=== PATIENT | female | born 1970 | race Caucasian/White ===

== ENCOUNTER 2017-04-29 21:48 | Emergency (ER) | payer BC ==
[2017-04-29 22:05] VITALS: BP 139/89
[2017-04-29] MEDS ORDERED: Sodium Chloride 0.9% 10 ML Syringe FLUSH PRN (22:21)
--- NOTE | 2017-04-29 23:35 | EDM.PDOC ---
ED HPI GENERAL MEDICAL PROBLEM - General Chief Complaint: Behavioral/Psych Stated Complaint: ARM AND FACE NUMBNESS Time Seen by Provider: 04/29/17 22:06 Source of Information: Reports: Patient History Limitations: Reports: No Limitations - History of Present Illness INITIAL COMMENTS - FREE TEXT/NARRATIVE: The patient presents with left facial numbness and left arm numbness. She noticed this yesterday. This is made worse by anxiety that she has. She will see a counselor next week. She has had a tough life. She was in a bad marriage , a son , and another son is psychotic and he is in a skilled nursing. She is now in a good relationship with a great yas and she is worried he may dump her because she is not supposed to be happy. The numbness is made worse with anxiety. She denies a headache or vision problems. She has no weakness with this. She does have a history of asthma and has tightness in her chest. She has no shortness of breath, nausea, vomiting or abdominal pain. Onset: Gradual Duration: Day(s): (2) Location: Reports: Face, Upper Extremity, Left (arm) Quality: Reports: Other (numbness) Severity: Mild Improves with: Reports: None Worsens with: Reports: None Context: Reports: Activity Associated Symptoms: Reports: No Other Symptoms Treatments PSYCHIATRY TEACHER: Reports: Other (see below) Other Treatments PSYCHIATRY TEACHER: rescue inhaler albuterol - Related Data Allergies Allergy/AdvReac Type Severity Reaction Status Date / Time Sulfa (Sulfonamide Allergy Rash Verified 04/29/17 22:04 Antibiotics) Home Meds: Home Meds Albuterol [IJD: Ventolin HFA] 1 puff INH BID PRN 04/29/17 [History] Control Pills 1 tab PO DAILY 04/29/17 [History] Levothyroxine 125 mcg PO ACBREAKFAST 04/29/17 [History] Past Medical History - Past Health History Medical/Surgical History: Denies Medical/Surgical History Respiratory History: Reports: Asthma TRAINING AND DEVELOPMENT COORDINATOR History: Reports: Dysfunctional Uterine Bleeding, Musculoskeletal History: Reports: Other (See Below) Other Musculoskeletal History: "pinched nerve" to right shoulder Psychiatric History: Reports: Anxiety, Depression Endocrine/Metabolic History: Reports: Hypothyroidism - Past Surgical History Female Surgical History: Reports: Section, Other (See Below) Other Female Surgeries/Procedures: period problems Social & Family History - Family History Family Medical History: Noncontributory - Tobacco Use Smoking Status *Q: Never Smoker - Caffeine Use Caffeine Use: Reports: None - Recreational Drug Use Recreational Drug Use: No ED ROS GENERAL - Review of Systems Review Of Systems: See Below Constitutional: Reports: No Symptoms HEENT: Reports: No Symptoms Respiratory: Reports: No Symptoms Cardiovascular: Reports: No Symptoms Endocrine: Reports: No Symptoms GI/Abdominal: Reports: No Symptoms : Reports: No Symptoms Musculoskeletal: Reports: No Symptoms Skin: Reports: No Symptoms Neurological: Reports: Numbness (Left face and left arm). Denies: Dizziness, Headache, Trouble Speaking, Difficulty Walking, Weakness ED EXAM, NEURO - Physical Exam Exam: See Below Exam Limited By: No Limitations General Appearance: Alert, No Apparent Distress Eye Exam: Bilateral Eye: PERRL Ears: Normal External Exam Nose: Normal Inspection Throat/Mouth: Normal Inspection Head Exam: Atraumatic, Normocephalic Neck: Normal Inspection Respiratory/Chest: No Respiratory Distress, Lungs Clear, Normal Breath Sounds Cardiovascular: Regular Rate, Rhythm, No Edema, No Murmur Neurological: Alert, No Motor/Sensory Deficits, Oriented x 3 EKG INTERPRETATION EKG Date: 04/29/17 Time: 22:31 Rhythm: NSR Rate (Beats/Min): 72 [place]: Normal P-Wave: Present QRS: Normal ST-T: Normal QT: Normal Course - Vital Signs Last Recorded V/S: Last Vital Signs Temp 97.7 F 04/29/17 21:58 Pulse 86 04/29/17 21:58 Resp 18 04/29/17 21:58 BP 139/89 04/29/17 21:58 Pulse Ox 100 04/29/17 21:58 - Orders/Labs/Meds Orders: Active Orders 24 hr Category Date Time Status Cardiac Monitoring [RC] . DIRECTED Care 04/29/17 22:21 Active EKG Documentation Completion [RC] STAT Care 04/29/17 22:21 Active Peripheral IV Care [RC] . DIRECTED Care 04/29/17 22:21 Active Head wo Cont [CT] Stat Exams 04/29/17 22:21 Taken Sodium Chloride 0.9% [Saline Flush] Med 04/29/17 22:21 Active 10 ml FLUSH ASDIRECTED PRN Peripheral IV Insertion Adult [OM.PC] Stat Oth 04/29/17 22:21 Ordered Medication Orders Sodium Chloride (Saline Flush) 10 ml FLUSH ASDIRECTED PRN PRN Reason: Keep Vein Open Last Admin: 04/29/17 22:31 Dose: 10 ml Labs: Laboratory Tests 04/29/17 04/29/17 Range/Units 22:30 22:30 WBC 6.97 (3.98-10.04) K/mm3 RBC 4.21 (3.98-5.22) M/mm3 Hgb 12.5 (11.2-15.7) gm/L Hct 37.8 (34.1-44.9) % MCV 89.8 (79.4-94.8) fl MCH 29.7 (25.6-32.2) pg MCHC 33.1 (32.2-35.5) g/dl RDW Std Deviation 42.3 (36.4-46.3) fL Plt Count 277 (182-369) K/mm3 MPV 10.0 (9.4-12.3) fl Neut % (Auto) 60.9 (34.0-71.1) % Lymph % (Auto) 28.4 (19.3-51.7) % [place] % (Auto) 8.0 (4.7-12.5) % Eos % (Auto) 2.0 (0.7-5.8) Baso % (Auto) 0.6 (0.1-1.2) % Neut # (Auto) 4.24 (1.56-6.13) K/mm3 Lymph # (Auto) 1.98 (1.18-3.74) K/mm3 [place] # (Auto) 0.56 H (0.24-0.36) K/mm3 Eos # (Auto) 0.14 (0.04-0.36) K/mm3 Baso # (Auto) 0.04 (0.01-0.08) K/mm3 Sodium 138 (136-145) mEq/L Potassium 3.4 L (3.5-5.1) mEq/L Chloride 104 (98-107) mEq/L Carbon Dioxide 26 (21-32) mEq/L Anion Gap 11.4 (5-15) BUN 12 (7-18) mg/dL Creatinine 1.0 (0.55-1.02) mg/dL Est Cr Clr Drug Dosing 66.18 mL/min Estimated GFR (MDRD) 59 (>60) mL/min BUN/Creatinine Ratio 12.0 L (14-18) Glucose 108 H (74-106) mg/dL Calcium 8.8 (8.5-10.1) mg/dL Total Bilirubin 0.3 (0.2-1.0) mg/dL AST 19 (15-37) U/L ALT 40 (14-59) U/L Alkaline Phosphatase 32 L (46-116) U/L Troponin I < 0.017 (0.00-0.056) ng/mL Total Protein 6.7 (6.4-8.2) g/dl Albumin 3.4 (3.4-5.0) g/dl Globulin 3.3 gm/dL Albumin/Globulin Ratio 1.0 (1-2) Meds: Medications Generic Name Dose Route Start Last Admin Trade Name Freq PRN Reason Stop Dose Admin Sodium Chloride 10 ml 04/29/17 22:21 04/29/17 22:31 Saline Flush FLUSH 10 ml ASDIRECTED PRN Administration Keep Vein Open - Re-Assessments/Exams Free Text/Narrative Re-Assessment/Exam: 04/29/17 23:36 I ordered an IV saline lock, EKG, CT of her head, and labs. 04/29/17 23:[address] of her head looks good. Her EKG shows nothing acute. Her labs look good. She feels better. She does have trouble with her neck and she has some nerve damage to the left side of her face. I fee the numbness may be related to the anxiety. I will have her follow up with her doctor when she gets home. I offered to give her some ativan here but she did not want that. Departure - Departure Time of Disposition: 23:50 Disposition: Home, Self-Care 01 Condition: Good Clinical Impression: Anxiety, Left arm numbness, Chest tightness - Discharge Information Forms: ED Department Discharge Additional Instructions: Follow up with your doctor when you get home. Please return if you are worse. - My Orders Last 24 Hours: My Active Orders 04/29/17 22:21 Cardiac Monitoring [RC] . DIRECTED EKG Documentation Completion [RC] STAT Peripheral IV Care [RC] . DIRECTED Head wo Cont [CT] Stat Sodium Chloride 0.9% [Saline Flush] 10 ml FLUSH ASDIRECTED PRN Peripheral IV Insertion Adult [OM.PC] Stat - Assessment/Plan Last 24 Hours: My Active Orders 04/29/17 22:21 Cardiac Monitoring [RC] . DIRECTED EKG Documentation Completion [RC] STAT Peripheral IV Care [RC] . DIRECTED Head wo Cont [CT] Stat Sodium Chloride 0.9% [Saline Flush] 10 ml FLUSH ASDIRECTED PRN Peripheral IV Insertion Adult [OM.PC] Stat
--- NOTE | 2017-04-30 08:08 | CT ---
Head CT Technique: Multiple axial sections through the brain were obtained. Intravenous contrast was not utilized. Comparison: No previous intracranial imaging. Findings: Ventricles along with basal cisterns and sulci over the convexities are within normal limits for the patient's age. No abnormal parenchymal densities are seen. No evidence of intracranial hemorrhage. No midline shift or mass effect is seen. Bone window settings were reviewed which show no discrete calvarial abnormality. Visualized sinuses are clear. Impression: 1. No acute abnormality is identified on noncontrast head CT study. Diagnostic code #1 I agree with preliminary report issued by [facility] [facility] ([facility] preliminary report dictated on 04/29/17, 11:59 PM Central Time)
== END 2017-04-29 23:50 | disposition home or self-care (01) ==
LOC: JD.ED 21:48
DX: F41.9 Anxiety disorder, unspecified (principal); R07.89 Other chest pain; J45.909 Unspecified asthma, uncomplicated; F32.9 Major depressive disorder, single episode, unspecified; E03.9 Hypothyroidism, unspecified; Z88.2 Allergy status to sulfonamides
CPT/HCPCS: 36415; 70450; 80053; 84484; 85025; 93005; 99285; J7050; 99284